=== PATIENT | male | born 1985 | race Caucasian/White ===

== ENCOUNTER 2022-11-10 07:57 | Emergency (ER) | payer OTHER ==
[2022-11-10] MEDS ORDERED: XYLOCAINE 1% HCL 20 ML MDV IJ ONE (07:58)
[2022-11-10 08:05] VITALS: RESP 20; TEMP 97.5
[2022-11-10] MEDS ORDERED: Rocephin 1000 MG INJ IM ONE (08:22)
--- NOTE | 2022-11-10 08:29 | ERPHSYRPT ---
- History of Present Illness Time Seen by Provider: 11/10/22 08:24 Source: patient Exam Limitations: no limitations Patient Subjective Stated Complaint: PT states "I have had this on my face for about a week now and i am afraid it is a bad infection." Triage Nursing Assessment: PT presented alert and oriented X 3, skin pwd. Pt ambulates with an upright steady gait, able to speak in clear full sentences. PT has several small pimples on chin, chin is swollen, red. Physician History: Patient is 37-year-old male without any significant past medical history started having a boil on his chin 5 days ago which started getting worse he tried to open it and then he felt that it is spreading so he came to the emergency room. He denies any fever chills nausea or vomiting. Timing/Duration: day(s) Possible Causes: no cause identified Associated Symptoms: denies symptoms Allergies/Adverse Reactions: No Known Drug Allergies Allergy (Verified 06/30/14 12:12) Home Medications: PARoxetine HCL [Paxil] 20 mg PO DAILY 11/10/22 [History] Hx Tetanus, Diphtheria Vaccination/Date Given: No Hx Influenza Vaccination/Date Given: No Hx Pneumococcal Vaccination/Date Given: No Immunizations Up to Date: No Travel Risk - International Travel Have you traveled outside of the country in past 3 weeks: No - Coronavirus Screening Are you exhibiting any of the following symptoms?: No Close contact with a COVID-19 positive Pt in past 14-21 Days: No - Vaccine Status Have you recieved a Covid-19 vaccination: No - Review of Systems Constitutional: No Symptoms Eyes: No Symptoms Ears, Nose, & Throat: No Symptoms Respiratory: No Symptoms Cardiac: No Symptoms Abdominal/Gastrointestinal: No Symptoms Genitourinary Symptoms: No Symptoms Musculoskeletal: No Symptoms Skin: Cellulitis (on chin) - Past Medical History Pertinent Past Medical History: No Neurological History: No Pertinent History ENT History: No Pertinent History Cardiac History: No Pertinent History Respiratory History: No Pertinent History Endocrine Medical History: No Pertinent History Musculoskeletal History: No Pertinent History GI Medical History: GERD History: No Pertinent History Psycho-Social History: No Pertinent History Male Reproductive Disorders: No Pertinent History Other Medical History: no hx - Past Surgical History Past Surgical History: No Neuro Surgical History: No Pertinent History Cardiac: No Pertinent History Respiratory: No Pertinent History Gastrointestinal: No Pertinent History Genitourinary: No Pertinent History Musculoskeletal: No Pertinent History Male Surgical History: No Pertinent History - Social History Smoking Status: Never smoker Exposure to second hand smoke: No Drug Use: none Patient Lives Alone: No - Nursing Vital Signs Nursing Vital Signs: Initial Vital Signs Temperature 97.5 F 11/10/22 08:01 Pulse Rate 59 L 11/10/22 08:01 Respiratory Rate 20 11/10/22 08:01 Blood Pressure 149/101 11/10/22 08:01 O2 Sat by Pulse Oximetry 98 11/10/22 08:01 Pain Scale Pain Intensity 6 - Physical Exam General Appearance: no apparent distress, alert Eye Exam: PERRL/EOMI, eyes nml inspection Ears, Nose, Throat Exam: normal ENT inspection, pharynx normal, moist mucous membranes Neck Exam: normal inspection, non-tender, supple, full range of motion Respiratory Exam: normal breath sounds, lungs clear, No respiratory distress Cardiovascular Exam: regular rate/rhythm, normal heart sounds Gastrointestinal/Abdomen Exam: soft, mass, No tenderness Back Exam: normal inspection, normal range of motion, No CVA tenderness, No vertebral tenderness Extremity Exam: normal inspection, normal range of motion Neurologic Exam: alert, oriented x 3, cooperative, normal mood/affect, sensation nml, No motor deficits Skin Exam: normal color, warm, dry, other (abscess on chin) SpO2: 98 - Course Nursing assessment & vital signs reviewed: Yes Ordered Tests: Active Orders 24 hr Category Date Time Status Wound Care STAT Care 11/10/22 08:23 Active - Progress Progress: unchanged Counseled pt/family regarding: diagnosis, need for follow-up Medical Desision Making - Diagnostic Testing Diagnostic test were ordered, analyzed, and reviewed by me: No - Risk of complications Minimal Risk: Minimal risk of morbidity - Departure Departure Disposition: Home Clinical Impression: Abscess or cellulitis of chin Condition: Stable Critical Care Time: No Referrals: DENA JADE [Primary Care Provider] - Follow up/PCP as directed Instructions: Wound Infection, MRSA (DC) Additional Instructions: Discharge/Care Plan FEI ROMAN was seen on 11/10/22 in the Emergency Room. The patient was counseled regarding Diagnosis,Lab results, Imaging studies, need for follow up and when to return to the Emergency Room. Prescriptions given: Discharge Note I have spoken with the patient and/or caregivers. I have explained the patient's condition, diagnosis and treatment plan based on the information available to me at this time. I have answered the patient's and/or caregiver's questions and addressed any concerns. The patient and/or caregivers have as good understanding of the patient's diagnosis, condition and treatment plan as can be expected at this point. The vital signs have been stable. The patient's condition is stable and appropriate for discharge from the emergency department. The patient will pursue further outpatient evaluation with the primary care physician or other designated or consulting physician as outlined in the discharge instructions. The patient and/or caregivers are agreeable to this plan of care and follow-up instructions have been explained in detail. The patient and/or caregivers have received these instruction. The patient/and or caregivers are aware that any significant change in condition or worsening of symptoms should prompt an immediate return to this or the closest emergency department or call 911. JESSIEFEI BETANCUR was seen on 11/10/22 n the Emergency Room. At that time you were treated for an emergent condition, during your visit Laboratory, Radiology and/or other procedures may have been ordered. It is very important that you follow-up with your Primary Care Physician DENA JADE within the next 24-48 hours to review your Emergency Room visit and the final results of testing that was ordered. Some test results such as Urine Cultures, Blood Cultures, and other cultures if ordered will not be finalized for 24-48 hours. If you do not have a Primary Care Provider please call the medical records department at [phone] ext [phone] to obtain a copy of your results or you may sign into our patient portal to obtain these results by visiting us @ [email or web address] and completing the following steps: 1. Click on the Patient Portal link 2. Click the Patient Self Enrollment Link to complete the enrollment form and entering your 3. Once the enrollment form is completed you will receive an email with a temporary ID and password at the email address you provided. 4. Next choose a user name and password. Your user name must be at least 4 characters long and your password must be at least 4 characters long. 5. Choose a security question from the list and provide your answer to the question. If you already have signed into the Health Portal you may access your Health Care Information 16/09 by the following steps: 1. Login to our website @ [email or web address] 2. Enter your original user name and password. FAQS The [facility] Health Portal is an online tool that contains your Lab Results, Radiology Reports, Visit History, Discharge Instructions and Health Summary Lab and Radiology Results will not be available for 72 hours on the portal. The Portal is a secure site, passwords are encryted and URLs are re-written so they cannot be copied and pasted. You and authorized family members are the only ones who can access your Portal. Also there is a timeout feature that protects your information if you leave the Portal page open. If you have technical difficulty please use the Contact Us link on the page this will allow you to submit any questions you have regarding the Portal or you may contact the Medical Record Department at [phone] ext [phone]. Prescriptions: Mupirocin [Bactroban OINTMENT] 1 gm TP BID #22 cm Cephalexin Mh 500 mg [Keflex 500 mg] 500 mg PO Q6H #40 cap
[2022-11-10] MEDS ORDERED: Rocephin 1000 MG INJ ONE (08:34)
[2022-11-10] MEDS ORDERED: TYLENOL 325 MG PO ONE (08:40)
[2022-11-10] MEDS ORDERED: MOTRIN 600 MG PO ONE (08:40)
[2022-11-10] MEDS ORDERED: TYLENOL 325 MG ONE (08:41)
[2022-11-10] MEDS ORDERED: MOTRIN 600 MG ONE (08:41)
[2022-11-10 08:51] VITALS: BP 153/80; PULSE 58; O2SAT 97
== END 2022-11-10 08:59 | disposition home or self-care (01) ==
LOC: ED 07:57
DX: L02.01 Cutaneous abscess of face (principal); Z79.899 Other long term (current) drug therapy; Z28.310 Unvaccinated for COVID-19
CPT/HCPCS: 96372; 99283; J0696; A9270-GY